=== PATIENT | male | born 1990 | race African-American/Black ===

== ENCOUNTER 2020-12-10 23:25 | Emergency (ER) | payer OTHER ==
[~2020-12-10] VITALS: Ht 170.2 cm; Wt 98.8 kg
[2020-12-11] MEDS ORDERED: KETOROLAC 30 MG/ML 1ML VIAL IM ONE (04:50)
[2020-12-11 06:02] LABS: RSV AMPLIFICATION POSITIVE (NEGATIVE)
[2020-12-11 06:31] VITALS: BP 144/86
--- NOTE | 2020-12-11 06:36 | REPVR ---
PROCEDURE INFORMATION: Exam: XR Chest Exam date and time: 12/11/2020 5:12 AM Age: 30 years old Clinical indication: Cough TECHNIQUE: Imaging protocol: XR of the chest. Views: 1 view. COMPARISON: No relevant prior studies available. FINDINGS: Lungs: Unremarkable. No consolidation. Pleural spaces: Unremarkable. No pleural effusion. No pneumothorax. Heart/Mediastinum: The cardiac apex appear to be in the right chest. Bones/joints: Unremarkable. IMPRESSION: 1. No focal consolidation. 2. Cardiac apex appear to be in the right chest. It is not clear if this is due to technique or due to dextrocardia. If clinically indicated dedicated imaging of the heart either echocardiogram or cross-sectional imaging may be obtained on a nonemergent basis. Electronically signed by: Ray Griffiths On 12/11/2020 06:35:51 AM
== END 2020-12-11 06:39 | disposition home or self-care (01) ==
LOC: M ED 23:25
DX: R05 Cough (principal); B97.4 Respiratory syncytial virus as the cause of diseases classified elsewhere
CPT/HCPCS: 71045; 87631; 96372; 99283; J1885